=== PATIENT | female | born 1985 | race American Indian/Alaskan Native ===

== ENCOUNTER 2019-04-22 18:20 | Emergency (ER) | payer OTHER ==
--- NOTE | 2019-04-22 20:10 | Event Note ---
ED Screening Note ED Screening Note: pt presents frontal MARTINEZ that began a week ago pt presents with left sided CP for a week, states it feels like a pressure no SOB no N/V pt has a PMHx losartan-hctz, states she took her medication today, trigeminal neurolgia last saw her PCP 4 months ago non smoker non ETOH no drug use This initial assessment/diagnostic orders/clinical plan/treatment(s) is/are subject to change based on patients health status, clinical progression and re- assessment by fellow clinical providers in the ED. Further treatment and workup at subsequent clinical providers discretion. Patient/guardian urged not to elope from the ED as their condition may be serious if not clinically assessed and managed. Initial orders include: Cp protocol
[2019-04-22 20:38] LABS: Basophils % (Auto) 0.7 % (0.0-1.8); Eosinophils # (Auto) 0.1 K/mm3 (0.0-0.4); Eosinophils % (Auto) 0.9 % (0.0-4.3); Hematocrit 38.6 % (30.3-42.9); Hemoglobin 12.7 gm/dl (10.1-14.3); Lymphocytes # (Auto) 2.5 K/mm3 (1.2-5.4); Mean Corpuscular HGB Conc 33 % (30-34); Mean Corpuscular Volume 80 fl (79-97); Monocytes # (Auto) 0.5 K/mm3 (0.0-0.8); Monocytes % (Auto) 8.1 % (0.0-7.3); Platelet Count 327 K/mm3 (140-440); Red Blood Count 4.81 M/mm3 (3.65-5.03); Red Cell Distribution Width 14.4 % (13.2-15.2)
[2019-04-22 20:48] LABS: INR 0.93 (0.87-1.13)
[2019-04-22 20:49] LABS: Partial Thromboplastin Time 21.2 Sec. (24.2-36.6)
[2019-04-22 21:02] LABS: BUN/Creatinine Ratio 13; Blood Urea Nitrogen 8 mg/dL (7-17); Calcium 9.4 mg/dL (8.4-10.2); Hemolysis Index 13
[2019-04-22 21:35] LABS: Bilirubin,Urine NEG (Negative); Blood,Urine SM (Negative); Color,Urine Yellow (Yellow); Mucus,Urine FEW /HPF; Protein,Urine <15 mg/dL mg/dL (Negative); Urobilinogen,Urine < 2.0 mg/dL (<2.0)
--- NOTE | 2019-04-22 22:32 | Emergency Department Report ---
ED Chest Pain HPI - General Chief Complaint: High BP Stated Complaint: CHEST PAIN/HEADACHES Time Seen by Provider: 04/22/19 20:07 Source: patient Mode of arrival: Ambulatory Limitations: No Limitations - History of Present Illness Initial Comments: 33-year-old female history of hypertension presents to ED with chest pain and headache 1 week, states blood pressure has been elevated. Patient states she has been compliant with her BP meds (metoprolol, valsartan, HCTZ). States chest pain has been intermittent, feels like a weight on her chest. Reports associated nausea and vomiting. Pain is nonradiating, no aggravating or alleviating factors. Patient denies shortness of breath, diaphoresis. Reports lower extremity pain, denies swelling. Patient denies any focal weakness or numbness. Patient denies tobacco use. Patient denies having had a recent chest test. Reports family history of heart disease in her father, who had a heart attack in his 40s. MD Complaint: chest pain -: week(s) (1) Onset: during rest Pain Location: substernal Pain Radiation: none Severity: moderate Severity scale (0 -10): 5 Quality: heaviness, pressure Consistency: intermittent Improves With: nothing Worsens With: nothing re: nausea, vomting. denies: diaphoresis, dyspnea Other Symptoms: denies: leg swelling - Related Data Home Medications Medication Instructions Recorded Confirmed Last Taken carBAMazepine [TEGretol] 200 mg PO DAILY PRN 04/11/16 04/11/16 Unknown Previous Rx's Medication Instructions Recorded Last Taken Type Acetaminophen [Acetaminophen TAB] 650 mg PO Q4H PRN #30 tablet 04/12/16 Unknown Rx Valsartan [Diovan] 320 mg PO DAILY #30 tablet 04/12/16 Unknown Rx oxyCODONE /ACETAMINOPHEN [Percocet 1 tab PO Q6H PRN #30 tablet 04/12/16 Unknown Rx 5/325 mg] Allergies Allergy/AdvReac Type Severity Reaction Status Date / Time No Known Allergies Allergy Verified 04/22/19 18:24 Heart Score - HEART Score History: Slightly suspicious EKG: Normal Age: < 45 Risk factors: 1-2 risk factors Troponin: < normal limit HEART Score: 1 ED Review of Systems ROS: Stated complaint: CHEST PAIN/HEADACHES Other details as noted in HPI Comment: All other systems reviewed and negative Constitutional: denies: chills, fever Respiratory: denies: shortness of breath Cardiovascular: chest pain Gastrointestinal: nausea, vomiting Musculoskeletal: other (reports lower leg pain) Neurological: headache. denies: weakness, numbness, paresthesias, vertigo ED Past Medical Hx - Past Medical History Previous Medical History?: Yes Hx Hypertension: Yes Additional medical history: Trigemnial Neuralgia - Surgical History Past Surgical History?: No - Social History Smoking Status: Never Smoker Substance Use Type: None - Medications Home Medications: Home Medications Medication Instructions Recorded Confirmed Last Taken Type carBAMazepine [TEGretol] 200 mg PO DAILY PRN 04/11/16 04/11/16 Unknown History Acetaminophen [Acetaminophen TAB] 650 mg PO Q4H PRN #30 tablet 04/12/16 Unknown Rx Valsartan [Diovan] 320 mg PO DAILY #30 tablet 04/12/16 Unknown Rx oxyCODONE /ACETAMINOPHEN [Percocet 1 tab PO Q6H PRN #30 tablet 04/12/16 Unknown Rx 5/325 mg] ED Physical Exam - General Limitations: No Limitations General appearance: alert, in no apparent distress - Head Head exam: Present: atraumatic, normocephalic - Eye Eye exam: Present: normal appearance, PERRL, EOMI - ENT ENT exam: Present: mucous membranes moist - Neck Neck exam: Present: normal inspection - Respiratory Respiratory exam: Present: normal lung sounds bilaterally. Absent: respiratory distress - Cardiovascular Cardiovascular Exam: Present: regular rate, normal rhythm - GI/Abdominal GI/Abdominal exam: Present: soft. Absent: distended, tenderness - Extremities Exam Extremities exam: Present: normal inspection, calf tenderness (very mild bilaterally). Absent: pedal edema - Neurological Exam Neurological exam: Present: alert, oriented X3, CN II-XII intact. Absent: motor sensory deficit - Psychiatric Psychiatric exam: Present: normal affect, normal mood - Skin Skin exam: Present: warm, dry, intact, normal color ED Course Vital Signs 04/22/19 04/22/19 04/22/19 20:08 21:51 21:52 Temperature 98 F Pulse Rate 77 72 Respiratory 18 15 15 Rate Blood Pressure 176/122 Blood Pressure 164/113 [Right] O2 Sat by Pulse Oximetry 04/22/19 04/22/19 04/22/19 21:53 22:55 23:54 Temperature Pulse Rate 72 70 72 Respiratory 16 Rate Blood Pressure 161/108 Blood Pressure 146/104 [Right] O2 Sat by Pulse 98 Oximetry 04/23/19 01:45 Temperature Pulse Rate 88 Respiratory 19 Rate Blood Pressure Blood Pressure 160/102 [Right] O2 Sat by Pulse 98 Oximetry - Consultations Consultation #1: 04/23/19 03:11 Spoke remigio/ Anastacio on-call, Dr Benton. States pt will be transferred to [facility] with accepting physician of Dr Powers. CAMERON score - Cameron Score Age > 65: (0) No Aspirin use within the Past 7 Days: (0) No 3 or more CAD Risk Factors: (0) No 2 or more Angina events in past 24 hrs: (1) Yes Known CAD with more than 50% Stenosis: (0) No Elevated Cardiac Markers: (0) No ST Deviation Greater than 0.5mm: (0) No CAMERON Score: 1 ED Medical Decision Making - Lab Data Result diagrams: 04/22/19 20:25 04/22/19 20:25 - EKG Data -: EKG Interpreted by Pr EKG shows normal: sinus rhythm, axis, intervals, QRS complexes, ST-T waves Rate: normal - EKG Data Interpretation: no acute changes - Radiology Data Radiology results: report reviewed, image reviewed - Medical Decision Making 33 yo F w/ HTN, MARTINEZ and chest pain. No neuro deficits on exam. Family hx of CAD. EKG and troponin normal. Chest pain currently resolved. CTA negative for PE. BP improved with IV labetalol. Spoke remigio/ Anastacio physician. Will transfer pt to [facility] for further workup. - Differential Diagnosis ACS, PE, CVA Critical care attestation.: If time is entered above; I have spent that time in minutes in the direct care of this critically ill patient, excluding procedure time. ED Disposition Clinical Impression: Chest pain Disposition: [id number]/TX-[id number] ANOTHER TYPE [facility] Is pt being admited?: No Condition: Stable Instructions: Chest Pain (ED) Time of Disposition: 03:15
[2019-04-22] MEDS ORDERED: NORMODYNE IV ONE (22:35)
--- NOTE | 2019-04-22 22:35 | XRay Report ---
PROCEDURE: XR CHEST ROUTINE 2V TECHNIQUE: PA and lateral chest radiographs were obtained. HISTORY: Chest Pain COMPARISONS: None. FINDINGS: There is no evidence of infiltrate, pneumothorax or pleural fluid collection. The cardiac silhouette is upper limits of normal size. The thoracic aorta and bony structures are unremarkable. IMPRESSION: 1. No evidence of an acute pulmonary process.. This document is electronically signed by Noreen Chao MD., April 22 2019 10:33:18 PM ET
[2019-04-23] MEDS ORDERED: MORPHINE IV ONE
[2019-04-23 01:46] VITALS: BP 160/102
--- NOTE | 2019-04-23 01:54 | Cat Scan Report ---
PROCEDURE: CT HEAD/BRAIN WO CON TECHNIQUE: Computerized tomography of the head was performed without contrast material. HISTORY: headache COMPARISONS: None . FINDINGS: Skull and scalp: Normal . Paranasal sinuses: Normal . Ventricles and subarachnoid spaces: Normal . Cerebrum: No evidence of hemorrhage, acute infarction or mass . Cerebellum and brainstem: No evidence of hemorrhage, acute infarction or mass . Vasculature: Normal . Other: None . ASPECTS: 10 IMPRESSION: Normal Examination . This document is electronically signed by Geno Corral DO., April 23 2019 01:52:54 AM ET
--- NOTE | 2019-04-23 01:56 | Cat Scan Report ---
PROCEDURE: CT ANGIO CHEST TECHNIQUE: Computerized tomographic angiography of the chest was performed after the IV injection of iodinated nonionic contrast including image processing. The image data was postprocessed using 2-di mensional multiplanar reformatted (MPR) and 3-dimensional (MIP and/or volume rendered) techniques. Au tomated exposure control, adjustment of mA and/or kV according to patient size, or iterative reconstr uction dose optimization techniques were utilized. HISTORY: chest pain COMPARISONS: None . FINDINGS: Heart and pericardium: Normal. Thoracic aorta: Normal. Pulmonary vasculature: There is no evidence of pulmonary arterial emboli. Lymph nodes: No enlarged thoracic lymph nodes. Lungs: The lungs are clear. No consolidation, effusion or pneumothorax. Pleural space: No effusion, thickening, or pneumothorax. Musculoskeletal structures: No significant abnormality. Upper abdominal structures: No significant abnormality. IMPRESSION: Normal Examination . This document is electronically signed by Geno Corral DO., April 23 2019 01:54:46 AM ET
[2019-04-23] MEDS ORDERED: ASPIRIN PO ONE (02:41)
== END 2019-04-23 04:21 | disposition other institution (70) ==
LOC: ED 18:20
DX: R07.89 Other chest pain (principal); I10 Essential (primary) hypertension; Z79.899 Other long term (current) drug therapy
CPT/HCPCS: 36415; 70450; 71046; 71275; 80048; 81001; 84484; 84703; 85025; 85610; 85730; 93005; 93010; 96374; 96375; 99285; J2270; Q9967